=== PATIENT | female | born 1990 | race Asian ===

== ENCOUNTER 2019-06-14 13:51 | Outpatient (CLI) | payer OTHER ==
--- NOTE | 2019-06-14 15:28 | ULT ---
EXAM: Pelvic ultrasound HISTORY: Abnormal uterine bleeding COMPARISON: None TECHNIQUE: Multiple grayscale and color Doppler images were obtained in a transabdominal and transvag inal pelvic ultrasound. Spectral analysis of the Doppler waveforms of the ovaries were performed. FINDINGS: CERVIX: No evidence of nabothian cysts. UTERUS: Normal in size without focal abnormality. ENDOMETRIAL STRIPE: More focally thickened and heterogeneous in the fundus. 16 mm. No intrauterine pr egnancy. No free fluid is seen in the pelvis. RIGHT OVARY: Normal flow without focal mass. LEFT OVARY: Normal flow without focal mass. IMPRESSION: No evidence of intrauterine or ectopic .
== END 2019-06-14 13:52 | disposition home or self-care (01) ==
LOC: SCSULT 13:51
PROVIDERS: ATTEND Student in an Organized Health Care Education/Training Program
DX: N93.9 Abnormal uterine and vaginal bleeding, unspecified (principal)
CPT/HCPCS: 76856

== ENCOUNTER 2019-09-20 | Outpatient (CLI) | payer OTHER | END 2019-09-20 14:26 | disposition home or self-care (01) | DX: N91.2 Amenorrhea, unspecified (principal); Z87.59 Personal history of other complications of pregnancy, childbirth and the puerperium; Z3A.09 9 weeks gestation of pregnancy ==

== ENCOUNTER 2020-04-17 23:18 | Inpatient (IN) | payer BC, MEDICAID ==
[~2020-04-17 23:18] MED LIST: Bupivacaine HCl 0.25%/Epi 0.0005/PF 10 ML VIAL FS ONE; ePHEDrine 50 MG/ML VIAL ONE
[2020-04-17 23:56] VITALS: BMI 25.0
[2020-04-18] MEDS ORDERED: hydrALAZINE 20 MG/ML VIAL SLOW IVP PRN ×3 (00:20→13:02)
[2020-04-18] MEDS ORDERED: Butorphanol Tartrate 1 MG/ML VIAL IM SCH (00:30)
[2020-04-18] MEDS ORDERED: Ibuprofen 800 MG TAB PO PRN (00:35)
[2020-04-18] MEDS ORDERED: Lidocaine 1% (PF) 30 ML VIAL SC PRN (00:35)
[2020-04-18] MEDS ORDERED: Ondansetron PF 4 MG/2 ML Vial IVP PRN ×2 (00:35→03:26)
[2020-04-18] MEDS ORDERED: Promethazine HCl 25 MG/ML VIAL IM PRN ×2 (00:35→03:26)
[2020-04-18] MEDS ORDERED: NS / Oxytocin 40 units/1000ml 1,000 ML IV PRN (00:35)
[2020-04-18] MEDS ORDERED: HYDROcodone/Acetaminophen 5/325 mg Tablet PO PRN ×2 (00:35)
--- NOTE | 2020-04-18 00:35 | PDOC.BPN ---
- Brief Progress Note TOLAC CONSENT I have seen the patient at [facility] and addressed TOLAC with her. Her CS HX was reviewed with her by me at bedside. She was not given restriction to TOLAC after first CS. I explained option of repeat CS vs TOLAC and she wishes to try tolac. First CS was not in labor. Aware of possible need for repeat CS, blood transfusion, possibility of ruptured uterus. ACOG data provided by me. I have notified Dr Nguyen as well. Admit now due to CS HX
--- NOTE | 2020-04-18 00:38 | PDOC.BPN ---
- Brief Progress Note GBS neg
--- NOTE | 2020-04-18 01:06 | HP ---
TIME OF EVALUATION: Roughly 0010, it is now 0023. LOCATION: Labor and Delivery Triage, bed A. Patient of Dr. Nguyen. CHIEF COMPLAINT: Possible contractions at 38 weeks and 6 days. HISTORY OF PRESENT ILLNESS: This is a 30-year-old, G3, P1 with an EDC of April 26, placing her at 38 weeks and 6 days with previous x1, [place]. She states that was done before labor, because the baby was "not moving," but the baby was born well. She desires TOLAC with this and has discussed that with her provider. She has regular contractions about every 3 to 5 minutes, although she was not sure of their frequency initially. She denies vaginal bleeding also, and she also denies any leakage of fluid. She has good movement. REVIEW OF SYSTEMS: GENERAL: No sick contacts. No fever or chills. PULMONARY: No shortness of breath. CARDIOVASCULAR: No chest pain. EXTREMITIES: No unusual swelling or pain in the legs. PAST MEDICAL HISTORY: Noncontributory. PAST SURGICAL HISTORY: Her x1. MEDICATIONS: Only vitamins. ALLERGIES: NONE. SOCIAL HISTORY: Negative for alcohol, tobacco, or drug use. PHYSICAL EXAMINATION: VITAL SIGNS: Show a blood pressure of 115/70, pulse of 81, respirations are 16, and temperature is 98.1. GENERAL: She is in no acute distress, but has some mild contraction discomfort. ABDOMEN: Soft and nontender. PELVIC: Cervix is 2 cm dilated, 50% effaced, -1 station. This is the same that she was last week according to her report. monitor: I have evaluated the heart tracing and it is at baseline of 140s with accelerations and variability present. She is having contractions on tocodynamometer that are irregular between every 3 to 5 minutes along with some uterine irritability. ASSESSMENT: This is a 30-year-old, G3, P1 with a previous section x1 five years ago, who desires trial of labor after caesarean when she is in labor, now at 38 weeks and 6 days with latent labor. PLAN: 1. Because of her TOLAC history, we will observe for at least 3 hours, although I do possibly anticipate her stain. 2. Because she is 2 cm and was the same at her last check, if she is not significantly changed, we may release her home with followup within 24 hours with her provider. 3. For right now, the diagnosis is desires TOLAC, latent phase of labor, 38 weeks and 6 days by stated EDC. 4. The patient requests pain control, so we will give her Stadol and see if this helps her. Job ID: [id number] MTDD
[2020-04-18] MEDS: Lactated Ringer's 1,000 ML IV SCH ×4 (01:37→11:02)
[2020-04-18 02:04] LABS: Hemoglobin 12.5 g/dL (12.0-16.0); Mean Corpuscular HGB CONC 33.7 g/dL (32.0-36.0); Mean Corpuscular Hemoglobin 26.5 pg (27.0-31.0); Mean Corpuscular Volume 78.7 fL (78.0-98.0); Platelet Count 261 thou/uL (130-400); Red Blood Cell (RBC) Count 4.72 mill/uL (4.20-5.40); White Blood Cell (WBC) Count 12.9 thou/uL (4.8-10.8)
[2020-04-18] MEDS ORDERED: Fentanyl 4 mcg/Bup 0.1% Cadd 100 ML ONE (02:16)
[2020-04-18 02:42] LABS: HBSAg Index 0.18 S/CO (0-0.99); HIV (1/2) Antibody/Antigen Non-Reactive (NonReactive); HIV 1/2 INDEX 0.15 S/CO (<1.00); Hep B Surf Ag Non-Reactive S/CO (NonReactive)
[2020-04-18] MEDS ORDERED: Lactated Ringer's 500 ML IV PRN (03:26)
[2020-04-18] MEDS ORDERED: Naloxone HCl 0.4 mg/ml Vial IVP PRN ×2 (03:26)
[2020-04-18] MEDS ORDERED: Acetaminophen 325 MG TAB PO PRN (03:26)
[2020-04-18] MEDS ORDERED: diphenhydrAMINE 50 MG/ML VIAL IVP PRN (03:26)
[2020-04-18] MEDS ORDERED: Fentanyl 4 mcg/Bupivacaine 0.1% Cassette 100 ML EPIDURAL SCH (03:30)
[2020-04-18] MEDS ORDERED: Communication Order-Pharmacy FS SCH (03:30)
[2020-04-18 05:15] LABS: Syphilis Antibody Nonreactive (Nonreactive); Syphilis Antibody Index 0.04 S/CO (<1.00 Non-Reactive)
[2020-04-18] MEDS: ePHEDrine 50 MG/ML VIAL SLOW IVP PRN ×2 (05:36→05:55)
[2020-04-18 08:33] LABS: SARS-CoV-2 MS2 Positive; SARS-CoV-2 N Gene Negative; SARS-CoV-2 S Gene Negative; SARS-CoV-2 by NAA Not Detected (NotDetected); SARS-CoV-2 orf1ab Negative
[2020-04-18] MEDS ORDERED: NS w/ Oxytocin 30 units 500 ML ONE ×2 (10:31→16:21)
[2020-04-18] MEDS ORDERED: Adacel (T-DAP) 0.5 ML SYRINGE IM ONE (13:02)
[2020-04-18] MEDS ORDERED: Preparation H Ointment 28 GM TUBE PR PRN (13:02)
[2020-04-18] MEDS ORDERED: Lanolin Ointment 7 GM TUBE TOP PRN (13:02)
[2020-04-18] MEDS ORDERED: Bisacodyl 10 MG SUPP PR PRN (13:02)
[2020-04-18] MEDS ORDERED: Milk Of Magnesia 30 ML UDCUP PO PRN (13:02)
[2020-04-18] MEDS ORDERED: NS / Oxytocin 40 units/1000ml 1,000 ML IV SCH (13:15)
[2020-04-18] MEDS: Ibuprofen 800 MG TAB PO SCH (16:35)
[2020-04-18] MEDS ORDERED: Benzocaine-Menthol 82.5 ML CAN TOP PRN (16:51)
--- NOTE | 2020-04-18 16:57 | PDOC.OPDEL ---
OB Operative/Delivery Note - Additional Findings/Plan Compilations/Other Findings: Vaginal Delivery Delivering Physician: Susana Patino MD PGY-3 Attending: Robles Booker MD Procedure: Spontaneous Vaginal Delivery Anesthesia: Epidural QBL: 180ml Pre-op Diagnosis: 1. Term intrauterine in labor 2. TOLAC Post-op Diagnosis: 1. Term intrauterine , delivered 2. Successful Indications: A 30yo female presents in labor Delivery Note: This is 30yo F @ 38.6wks who delivered a viable M infant at 1333 on 04/18. Following an uneventful antepartum course, a vigorous male was delivered over in the occipitoanterior position. Anterior Shoulder and then remainder of the body delivered. Nuchal cord x1. The head was held down and mouth and nares were bulb suctioned. Cord clamped after delayed cord clamping and cut and cord blood collected. Placenta delivered intact in the Man presentation with a 3 vessel cord noted. Fundal massage was performed and the fundus was firm. The cervix and vagina were inspected and a partial third degree laceration involving only the capsule was noted which was repaired with 2-0 Vicryl in the usual fashion. 3-0 Chromic was used for repair of then 2nd degree laceration. 3-0 Chromic used to approximate bilateral labial lacerations. Hemostasis noted following repair. went to nursery in good condition for routine care. Apgars were 8/9 at 1 & 5 minutes, respectively. Patient tolerated delivery well and went to after routine recovery/care. Addendum - Attending - Attending Attestation Date/Time: 04/19/20 0612 I personally evaluated the patient and discussed the management with Dr. Patino I agree with the History, Examination, Assessment and Plan documented above with any addition or exceptions noted below. I was the supervising physician taking the place for Dr Nguyen who was unavailable at time of delivery. I was gowned, supervised, instructed, and assisted on the vaginal repair.
[2020-04-18] MEDS: Ferrous Sulfate 325 MG TAB PO SCH (16:58)
[2020-04-18] MEDS: traMADol HCl 50 MG TAB PO PRN (20:46)
[2020-04-18] MEDS: Docusate Calcium (SURFAK) 240 MG CAP PO SCH (20:51)
[2020-04-19] MEDS: Ibuprofen 800 MG TAB PO SCH ×4 (00:19→21:01)
[2020-04-19] MEDS: traMADol HCl 50 MG TAB PO PRN ×2 (02:58→17:26)
--- NOTE | 2020-04-19 08:22 | PDOC.PP ---
Post Progress Note Post Day #: 1 PO intake tolerated: yes Flatus: yes Ambulation: yes Vital Signs (12 hours) Temp Pulse Resp BP Pulse Ox 04/19/20 08:03 98.1 F 99 20 89/55 L 99 04/19/20 05:45 98.0 F 85 16 91/53 L 04/19/20 00:30 98.3 F 93 14 99/53 L Weight Weight 146 lb - Physical Examination Abdominal: appropriately TTP Extremities: negative homans (B) Result Diagrams: 04/18/20 01:38 Additional Labs: Post Labs Hep Bs Antigen Non-Reactive S/CO (NonReactive) 04/18/20 01:38 Blood Type O POSITIVE 04/18/20 01:38 - Assessment/Plan Post day 1-. Partial 3rd degree..Doing well. Would like to go home today. Encouraged daily stool softeners and milk of magnesia to prevent constipation. f/u 6 weeks or prn.
[2020-04-19] MEDS: Prenatal Vitamin 1 TAB PO SCH (08:48)
[2020-04-19] MEDS: Ferrous Sulfate 325 MG TAB PO SCH ×2 (08:49→17:20)
[2020-04-19] MEDS: Docusate Calcium (SURFAK) 240 MG CAP PO SCH ×2 (08:49→21:01)
[2020-04-20] MEDS: traMADol HCl 50 MG TAB PO PRN ×2 (03:27→09:50)
[2020-04-20] MEDS ORDERED: Sodium Chloride 0.9% 10 ML ONE (04:25)
[2020-04-20] MEDS: Ibuprofen 800 MG TAB PO SCH (06:22)
--- NOTE | 2020-04-20 07:44 | PDOC.PP ---
Post Progress Note Post Day #: Ready to go home. No issues. PO intake tolerated: yes Flatus: yes Ambulation: yes Vital Signs (12 hours) Temp Pulse Resp BP Pulse Ox 04/19/20 20:55 97.9 F 91 18 89/58 L 98 Weight Weight 146 lb - Physical Examination Abdominal: no distention, appropriately TTP Extremities: negative homans (B) Result Diagrams: 04/18/20 01:38 Additional Labs: Post Labs Hep Bs Antigen Non-Reactive S/CO (NonReactive) 04/18/20 01:38 Blood Type O POSITIVE 04/18/20 01:38 - Assessment/Plan Post Day 2-. Doing well. D/c home. F/u 6 weeks.
[2020-04-20] MEDS: Ferrous Sulfate 325 MG TAB PO SCH (08:11)
[2020-04-20 09:19] VITALS: BP 91/51; TEMP 98.6
[2020-04-20] MEDS: Prenatal Vitamin 1 TAB PO SCH (09:48)
[2020-04-20] MEDS: Docusate Calcium (SURFAK) 240 MG CAP PO SCH (09:48)
== END 2020-04-20 12:39 | disposition home or self-care (01) | DRG 768 ==
LOC: L&D/OP 23:18 → L&D 04-18 07:08 → 3SW 04-18 16:29
PROVIDERS: ADMIT Obstetrics & Gynecology; ATTEND Obstetrics & Gynecology
PROC: 10E0XZZ Delivery of Products of Conception, External Approach (ICD-10-PCS; principal; 2020-04-18)
PROC: 0DQR0ZZ Repair Anal Sphincter, Open Approach (ICD-10-PCS; 2020-04-18)
DX: O34.219 Maternal care for unspecified type scar from previous cesarean delivery (principal); Z37.0 Single live birth; O70.20 Third degree perineal laceration during delivery, unspecified; Z3A.38 38 weeks gestation of pregnancy; Z20.828 Contact with and (suspected) exposure to other viral communicable diseases; O69.81X0 Labor and delivery complicated by cord around neck, without compression, not applicable or unspecified
CPT/HCPCS: 36415; 51702; 85027; 86780; 86850; 86900; 86901; 87340; 87389; 87635; 99285; J3490; U0003